=== PATIENT | male | born 1955 | race African-American/Black ===

== ENCOUNTER → 2017-01-08 | Outpatient (CLI) | payer BC, OTHER ==
[~2017-01-08] VITALS: Ht 177.8 cm; Wt 117.9 kg
[~2017-01-08] MED LIST: ALEVE220 MG PO; AMBIEN 5 MG TABL5 M1 PO; AMITRIPTYLINE H25 M2 PO; AMITRIPTYLINE H50 M2 PO; ASPIRIN81 M2 PO; CATAFLAM50 MG OR; DILAUDID 2 MG TA2 MG PO; ENDOCET 10-3251 EACH PO; ENOXAPARIN30 MG/0.3 SUBQ; ERY-TAB333 MG; ERYTHROMYCIN E3.5 G1 IO; ERYTHROMYCIN E3.5 G1 OPHTHALMIC; ERYTHROMYCIN E3.5 G3 OPHTHALMIC; HYDROCODON-ACE1 EAC5 PO; HYDROCODON-ACE1 EAC7 OR; IRON325 PO; LIDODERM 5%1 PATCH TOP; LOVENOX SQ; MEDROLDOSEPACK PO; METHADONE HCL 110 M1 PO; MOM PO; MS CONTIN15 MG PO; NEOMYC-POLYM-D3.5 GM OP; NEURONTIN 300300 M1 PO; NEXIUM40 MG PO; NORCO 10-325 T1 EACH PO; NORCO 5-325 TA1 EACH PO; NORFLEX100 MG PO; OXYCODONE HCL E15 MG PO; OXYCODONE HCL E20 MG PO; OXYCODONE-ACET1 EAC2 PO; OXYCONTIN20 M1 PO; OXYCONTIN40 MG PO; PEPCID40 MG PO; PERCOCET 10-321 EAC1 PO; PERCOCET 10-321 EACH PO; PERCOCET 5-3251 EACH PO; PLAVIX 75 MG TA75 M1 PO; ROXICODONE15 M1 PO; TOPROL XL25 MG PO; TOPROL XL50 MG PO; TRAMADOL 50 MG50 MG OR; VALIUM10 MG PO; XARELTO10 M1 PO; XARELTO10 MG PO; XTAMPZA ER18 MG PO; ZOCOR40 MG PO
--- NOTE | ~2017-01-08 | HPC ---
[facility] [address] [place] [address] PAIN MANAGEMENT CONSULTATION Name: PATY COOPER Room #: REG [facility].#: [id number] Admission: 01/08/17 Attend Phys: Leyda Leach MD Discharge: Date of : 55 Report #: [id number] THIS REPORT FOR: //name// CC: CHRIS physician/PCP Leyda Salgado MD DATE OF SERVICE: 01/08/2017 FOLLOWUP COMPLAINT: "I'm having to work long hours. I have worked 12 hours one day, 13 hours another day and the concrete is hard on my legs." FOLLOWUP HISTORY: The patient is a 61-year-old gentleman who has been followed in the pain clinic because of bilateral hip pain. As you recall, he has had his hips replaced. He continues to have some pain and discomfort. 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 He indicates that his amount of work has increased. They have gone from 8 custodians to 4 custodians. This is a peak time of the year when their services are needed. He has had to work 12 hours, 13 hours and numerous long hours. This continues to worsen the pain and discomfort that he is having on his legs. The patient's has recently come home from the hospital. She has a pulmonary condition and is limited in her ability to engage in activities of daily living because of her pulmonary situation. PHYSICAL EXAMINATION: GENERAL: The patient is alert, complains of pain and discomfort down into both legs and hips, notes increased stiffness in his legs and his hips. VITAL SIGNS: Blood pressure 159/95, pulse 74, respiratory rate 16, room air saturation 97%. Height 177 cm, weight 117 kilograms. BMI is 37. IMPRESSION: 1. Chronic bilateral hip pain status post hip replacements. 2. Hypertension. 3. Again past medical history of glaucoma at , enucleation of left eye. We would like to thank you for letting us participate in his care. We hope he continues to improve. A script for his medications have been rewritten. By: [id number] Leyda Leach MD /nt
[2017-01-08 08:17] VITALS: BP 159/95
== END ==
LOC: PAIN 12-25 07:10
DX: G89.29 Other chronic pain (principal); M25.552 Pain in left hip; M25.551 Pain in right hip; I10 Essential (primary) hypertension; F17.210 Nicotine dependence, cigarettes, uncomplicated

== ENCOUNTER → 2017-04-09 | Outpatient (CLI) | payer BC, OTHER ==
[~2017-04-09] VITALS: Ht 177.8 cm; Wt 116.1 kg
--- NOTE | ~2017-04-09 | HPC ---
[facility] [address] [place] [address] PAIN MANAGEMENT CONSULTATION Name: PATY COOPER Room #: REG [facility]#: [id number] Admission: 04/09/17 Attend Phys: Leyda Leach MD Discharge: Date of : 55 Report #: [id number] THIS REPORT FOR: //name// CC: Ting Salgado MD DATE OF SERVICE: 04/09/2017 PRIMARY PHYSICIAN: Mark Salgado MD FOLLOWUP COMPLAINT: "We have been working 12-hour days." FOLLOWUP HISTORY: The patient is a 61-year-old gentleman who has been followed in the pain clinic. As you recall, he has had bilateral hip replacements. 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 Since they are such a deficit, he has been working long hours. He notes that his pain continues to be more problematic on most days when he works really long hours. If he is able to rest, he notes some improvement in his pain. He finds that the medications that he is using continue to be helpful. There is still some stress in his life. As you recall, his has significant pulmonary problems. PHYSICAL EXAMINATION: Blood pressure 120/80, pulse 75, respiratory rate 16, room air saturation is 98%. Weight 116 kilograms. Height 177 cm. BMI is 36.7. The patient has not fallen since we saw him last. IMPRESSION: 1. Chronic bilateral hip pain, status post hip replacements. He is working long hours. Notes that the pain is exacerbated with these long hours. 2. Hypertension. 3. History of glaucoma, enucleation of left eye. RECOMMENDATIONS: We discussed treatment options with the patient. We will continue with his current medical regimen of [place] 10/325 one p.o. t.i.d. to q.i.d. to help with pain control. Percocet 10/325 one p.o. b.i.d. The patient has been given a script for lipid profile as well as CMP for electrolyte evaluation. He will call us if he has any problems with his medications. We would like to thank you for letting us participate in his care. We hope he continues to improve. By: [id number] Leyda Leach MD /nitesh
[2017-04-09 08:26] VITALS: BP 120/80
== END | disposition home or self-care (01) ==
LOC: PAIN 07:35
DX: M25.552 Pain in left hip (principal); M25.551 Pain in right hip; I10 Essential (primary) hypertension; H40.9 Unspecified glaucoma; Z87.891 Personal history of nicotine dependence

== ENCOUNTER → 2017-10-08 | Outpatient (CLI) | payer BC, OTHER ==
[~2017-10-08] VITALS: Ht 177.8 cm; Wt 119.8 kg
--- NOTE | ~2017-10-08 | HPC ---
[facility] [address] [place] [address] PAIN MANAGEMENT CONSULTATION Name: PATY COOPER Room #: REG [facility].#: [id number] Admission: 10/08/17 Attend Phys: Leyda Leach MD Discharge: Date of : 55 Report #: [id number] THIS REPORT FOR: //name// CC: LIZA Ross DATE OF SERVICE: 10/08/2017 FOLLOWUP COMPLAINT: Here for medication renewal. FOLLOWUP HISTORY: The patient is a 61-year-old gentleman who has been followed in the pain clinic because of chronic pain involving his legs. As you recall, he has had bilateral hip replacements. 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 He has a lot of responsibility. They have been quite short. He is working sometimes up to 14 hours. He feels that his medications are helpful. Does have a lot of stress at this juncture. His who has significant pulmonary problems, has been sidelined at home. He has returned today for renewal of his medications. Rates his pain as an 8/10. He states that he works constantly on concrete. Once he gets home and sits down, he notes some improvement in his pain, but continues to have pain, which is still quite problematic. He continues to keep his medications in a guarded place at home. He is aware of the shortcomings of opioid medications. He realizes that these medications can be addictive and that tolerance can develop. At this juncture, he feels that he needs to continue to work and finds that these medications provide him that pain relief, which is required. ALLERGIES: SULFA, IODINE, CODEINE, PENICILLIN, DILAUDID. MEDICATIONS: Current medication regimen reviewed. Oxycodone 10/325 one p.o. b.i.d., hydrocodone 10/325 one p.o. q.i.d., Polymyxin B ophthalmic left eye p.r.n. infection. PAIN CLINIC ASSESSMENT: 1. History of osteoarthritis, has had that in his hips and has had replacements, history of rheumatoid arthritis, not applicable. Height 5 feet 10 inches, weight 264 pounds, BMI is 37. 2. Vital Signs: Blood pressure 131/77, respiratory rate 20, room air O2 saturation is 98%, pulse 73. 3. Pain intensity 8/10. 4. Fall risk: The patient does not need help standing. He has not fallen in the last 3 months. 5. The patient is not on any blood thinner. 6. Hypertension. The patient is not on a hypertensive medication at this juncture. 7. Opioid therapy greater than 6 weeks: [place] [address] PAIN MANAGEMENT CONSULTATION Name: PATY COOPER Sil Room #: REG [facility]#: [id number] Admission: 10/08/17 Attend Phys: Leyda Leach MD Discharge: Date of : 55 Report #: [id number] contracts. 8. Risk assessment tool: Low risk at 3. 9. Functional assessment tool: 47/70 regarding general activity, mood, walking ability, normal work, relationships with others, sleep, life enjoyment. 10. Denies use of illicit drugs. Does smoke cigarettes, smokes 1 cigarette per day, has smoked for 20 years. Drinks approximately 6-7 beers per week. PHYSICAL EXAMINATION: GENERAL: He is a well-developed male, slightly obese, appears stated age. Orientation x3. Affect is appropriate. Does complain of feeling tired because he recently finished a long night of work. HEENT: Head is atraumatic. Hearing is good. Eyes: Extraocular eye muscles on the right intact. The patient has a prosthetic left eye. Nose is without sinus complaints. Buccal membranes are moist. NECK: Without adenopathy. LUNGS: Clear. HEART: Regular rate. ABDOMEN: Nontender. MUSCULOSKELETAL: Normal alignment without scoliosis, kyphosis or lordosis. The patient walks with a reasonably good gait. Complains of pain and discomfort in the left and right thighs down into his mid thigh area. Muscle strength is +5 in the upper extremities with normal sensation. The patient has some pain and discomfort in the anterior thighs, left and right, particularly after a long working days and after "standing on concrete." IMPRESSION: 1. Chronic hip pain, status post bilateral hip replacements. 2. Hypertension. 3. History of glaucoma at , requiring enucleation of left eye eventually. RECOMMENDATIONS: We discussed treatment options with the patient. We will continue with his current medical regimen. He is still stressed because of his 's pulmonary condition. 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 He continues to work long hours secondary to them being short-handed. Feels the stress of the job, but overall things are going reasonably well. He had a cholesterol panel, which showed creatinine 1.18, serum glucose 94, BUN 18. Lipid panel: Cholesterol total 223, triglycerides 111, HDL cholesterol 55, VLDL cholesterol 22, LDL cholesterol calculation 146. He will follow up in the future as needed. A script for [place] 10/325 one p.o. t.i.d., hydrocodone 10/325 one p.o. q.i.d. The patient will be given amitriptyline 25 mg to help with sleep and pain. He will increase this from 25 mg at bedtime to 50 mg at bedtime if he notes no untoward side effects. He will call us if he has any concerns. [facility] [address] [place] [address] PAIN MANAGEMENT CONSULTATION Name: PATY COOPER Room #: REG [facility].#: [id number] Admission: 10/08/17 Attend Phys: Leyda Leach MD Discharge: Date of : 55 Report #: [id number] We would like to thank you for letting us to participate in his care. We hope he continues to improve. <ELECTRONICALLY SIGNED> By: Leyda Leach MD 11/24/17 [id number] [id number] Leyda Leach MD /nt
[2017-10-08 09:14] VITALS: BP 131/77
== END ==
LOC: PAIN 06:54
DX: G89.29 Other chronic pain (principal); M25.551 Pain in right hip; M25.552 Pain in left hip; H40.9 Unspecified glaucoma; I10 Essential (primary) hypertension; Z96.643 Presence of artificial hip joint, bilateral; Z88.2 Allergy status to sulfonamides; Z91.041 Radiographic dye allergy status; Z88.5 Allergy status to narcotic agent; Z88.0 Allergy status to penicillin

== ENCOUNTER → 2017-12-24 | Outpatient (CLI) | payer BC, OTHER ==
[~2017-12-24] VITALS: Ht 177.8 cm; Wt 119.0 kg
--- NOTE | ~2017-12-24 | HPC ---
[facility] [place] [address] PAIN MANAGEMENT CONSULTATION Name: PATY COOPRE [facility] [id number] Admission: 12/24/17 Attend Phys: Leyda Leach MD Discharge: Date of : 55 Report #: [id number] THIS REPORT FOR: //name// CC: Ting Durant DATE OF SERVICE: 12/24/2017 FOLLOWUP COMPLAINT: Here for renewal of medication. I have been working about 12 hours a day and this is about my 15th day. FOLLOWUP HISTORY: The patient is a 62-year-old gentleman, who has been followed in the pain clinic because of chronic pain. As you recall, he has had some osteoarthritic changes in his hips. He has had bilateral hip replacements. He continues to work vigorously. 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 He gets called from one high school/[employer] high to the other. He has been working quite long hours at this juncture. This is the time of year when a number of programs are scheduled during the school year. He has to setup the gymnasium with chairs as well as breaks them down and put them away. He has noticed that all of this continued weight, work, and activity continues to make his hip and leg pain more problematic. Overall, he feels like his medications are still helpful. His is doing better. She is in a pulmonary rehabilitation program. Overall, she continues to improve. He would like to continue with his medications. States that the medications continue to be helpful and enable him to be and remain gainfully employed. He has taken the medication as prescribed. Denies any problem with medication. Denies any problems with his bowel or bladder function. Denies any problems with mentation. He would like to renew the medications today. ALLERGIES: SULFA, IODINE, CODEINE, PENICILLIN, AND DILAUDID. CURRENT MEDICATIONS: Amitriptyline 25 mg p.o. at bedtime, sometimes takes 2 tablets; Percocet 10/325 one p.o. q.8 hours p.r.n.; hydrocodone 10/325 one p.o. q.i.d. p.r.n. for leg pain; Neomycin/polymyxin B sulfate/dexamethasone eye ointment. PAIN CLINIC ASSESSMENT: 1. History of osteoarthritis, has had bilateral hip replacements and continues to have pain and discomfort as a result of this. 2. Height 5 feet 10 inches, weight 262 pounds, BMI 37. 3. Vital Signs: Blood pressure 134/85, pulse 107, respiratory rate 16, room air saturation 97%. 4. Pain intensity 02/20. [address] [address] PAIN MANAGEMENT CONSULTATION Name: PATY COOPER [facility] [id number] Admission: 12/24/17 Attend Phys: Leyda Leach MD Discharge: Date of : 55 Report #: [id number] 5. Fall risk. The patient on occasion notes that the pain can be quite problematic because of his long hours at work. 6. Blood thinners. The patient is not on a blood thinner. 7. History of hypertension. The patient is being treated for hypertension. 8. Opioid therapy greater than 6 weeks. The patient is on an opioid contract with the pain clinic and gets his medications from only one source. 9. Risk assessment tool 0, which is low. 10. Functional assessment tool. 11. Recreational drug use: The patient denies use of recreational drugs. 12. Tobacco: The patient is a current every day smoker, smokes 1 pack per 2 weeks. 13. Alcohol: The patient denies use of alcoholic beverages. PHYSICAL EXAMINATION: GENERAL: The patient is a well-developed male, appears slightly obese. Appears his stated age. His orientation, he is alert and oriented x 3. Affect: The patient's affect is normal. Speech is fluent. HEENT: Normocephalic. Extraocular eye muscles intact on the right side. The patient has a prosthetic left eye. Nose without sinus complaints. Mucous membranes are moist. NECK: Without adenopathy. Good range of motion. CHEST: Clear to auscultation without rales or cough. ABDOMEN: Nontender and somewhat protuberant. EXTREMITIES: Muscular structure in the upper extremities is judged to be 5/5 with normal muscles strength and normal neurologic function. Lower extremity: The patient walks with a slight antalgic gait. He rises from his chair to a standing position in about 5 seconds. Complains of some pain and discomfort in his hips because he has been working really hard and standing on them, walking on "concrete." Muscle straight is judged to be 5/5 for the upper extremities as well as 5/5 for the lower extremities. Notes some pain in his anterior thighs, left and right, particularly after prolonged standing. IMPRESSION: 1. Chronic pain, status post bilateral hip replacements with chronic pain. 2. Hypertension. 3. History of glaucoma at , requiring enucleation of his left eye. 4. with pulmonary problems/improving. RECOMMENDATIONS: We discussed treatment options with the patient. We will continue with his current medication regimen. Overall, he feels more relaxed. His 's condition is improving. She is increasing her activity with her pulmonary therapy. Overall, he still feels stressed because of his job. He is short of help. 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 We will renew his medication. He will call us if he has any problems. The patient has been given a script for Percocet, hydrocodone and [facility] [address] [place] [address] PAIN MANAGEMENT CONSULTATION Name: PATY COOPER Room #: REG [facility]#: [id number] Admission: 12/24/17 Attend Phys: Leyda Leach MD Discharge: Date of : 55 Report #: [id number] amitriptyline. We would like to thank you for letting us participate in his care. We hope he continues to improve. By: [id number] Leyda Leach MD /EASTON
[2017-12-24 09:52] VITALS: BP 134/85
== END ==
LOC: PAIN 07:04
DX: G89.29 Other chronic pain (principal); I10 Essential (primary) hypertension; H40.9 Unspecified glaucoma; Z96.643 Presence of artificial hip joint, bilateral

== ENCOUNTER → 2018-04-08 | Outpatient (CLI) | payer BC, OTHER ==
[~2018-04-08] VITALS: Ht 177.8 cm; Wt 116.7 kg
--- NOTE | ~2018-04-08 | HPC ---
[facility] [address] [place] [address] PAIN MANAGEMENT CONSULTATION Name: PATY COOPER Room #: REG [facility] Silvana.#: [id number] Admission: 04/08/18 Attend Phys: Leyda Leach MD Discharge: Date of : 55 Report #: [id number] THIS REPORT FOR: //name// CC: Ting Salgado DATE OF SERVICE: 04/08/2018 FOLLOWUP COMPLAINT: "School is about to start and I am working long hours even on Saturdays and Sundays." FOLLOWUP HISTORY: The patient is a 62-year-old gentleman who has been followed in the pain clinic because of chronic pain. As you recall, he has had bilateral hip replacements. He continues to have pain and discomfort in his thighs. He rates his pain as a 6/10 today. Notes that the pain is exacerbated with all of his activities at work. There is significant amount of walking, standing and lifting. 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 He notes that his has had some worsening of her health. He has had some swelling in his right jaw. He was having problems and was taken to the Emergency Room. He was placed on antibiotics. No obvious sign of infections were found. Overall, he seems like he is turning the corner at this juncture, he is feeling a little better. He feels his medications are helpful. Continues to note pain, which is quite problematic. He states that when he gets home from work oftentimes, walks in a forward bending motion and somewhat shuffling gait, similar to that of what his father. He now continues to work hard walking erect. Denies any problems with his mentation with use of his medications. He takes his medication as prescribed. Keeps his medications in a guarded area. ALLERGIES: SULFA, IODINE, CODEINE, PENICILLIN, AND DILAUDID. CURRENT MEDICATIONS: Amitriptyline 25 mg p.o. at bedtime, Percocet 10/325 one p.o. daily hours p.r.n., hydrocodone 10/325 one p.o. q.i.d. p.r.n. for leg pain, neomycin/polymyxin B sulfates and dexamethasone ophthalmic ointment. PAIN CLINIC ASSESSMENT: 1. History of osteoarthritis, has had bilateral hip replacements and continued to have pain and discomfort as a result of this. 2. Height 5 feet 10 inches, weight 257 pounds, BMI is 36. 3. Vital signs: Blood pressure 138/75, pulse 77, respiratory rate 20, room air saturation is 100%. 4. Pain intensity 02/20. 5. Fall risk. The patient has not fallen in the last 3 months. He did note some episodes on one to occasions where he has stood up, started to walk and stumbled, it was not hurt. He continues to move from a sitting or resting position with more emphasis on control his walking. [address] [address] PAIN MANAGEMENT CONSULTATION Name: PATY COOPER Room #: REG [facility].#: [id number] Admission: 04/08/18 Attend Phys: Leyda Leach MD Discharge: Date of : 55 Report #: [id number] 6. Blood thinner. The patient is not on a blood thinning medication. 7. Hypertension. The patient has been treated for hypertension. 8. Opioid therapy greater than 6 weeks. The patient is receiving medications from the pain clinic on a regular basis. 9. Risk assessment tool, low risk for use of opioid medications. 10. Functional assessment tool. 11. Recreational drug use. The patient denies use of recreational drugs. 12. Tobacco. The patient smokes daily 1 pack of cigarettes per day. 13. Alcohol. The patient occasionally drinks alcoholic beverages weekly depending on his activity level. PHYSICAL EXAMINATION: GENERAL: The patient is a well-developed black male, appears of his stated age. Slightly obese. He is alert and oriented x 3. Affect is appropriate. Speech is fluent. Does state that he feels a little bit tired because of his chronic 10-12 hour days working. HEENT: Normocephalic, atraumatic. Extraocular eye muscles intact. Mucous membranes are moist. Her left eye is prosthetic and right eye is nonicteric. NECK: Without adenopathy or JVD. Good range of motion. LUNGS: Clear to auscultation without rales or rhonchi. ABDOMEN: Nontender, somewhat due to protuberant. EXTREMITIES: Muscular strength in the upper extremity is judged to be 5/5 without neurological changes. Lower extremities, the patient still complains of pain and discomfort in his hips bilaterally and walks with a slightly antalgic gait. Slow to rise. Uses his hands to go from a sitting to a standing position. IMPRESSION: 1. Chronic pain, status post bilateral hip replacements treated with complex medical regimen of opioids. 2. Hypertension. 3. History of glaucoma at , requiring enucleation of his left eye. 4. with pulmonary problems -- now with swelling in her right jaw on antibiotics and improving. RECOMMENDATIONS: We discussed treatment options with the patient. We will continue with his current medication regimen. He feels that the medications continue to be helpful. They know allow him to be remain gainfully employed. He does not have any problems with his mentation. He would like to continue with his medications. The patient has been given a script for his medications of amitriptyline, Percocet, hydrocodone. He will call us if he has any problems [facility] [address] [place] [address] PAIN MANAGEMENT CONSULTATION Name: PATY COOPER Room #: REG [facility].#: [id number] Admission: 04/08/18 Attend Phys: Leyda Leach MD Discharge: Date of : 55 Report #: [id number] or concerns. We would like to thank you for letting us participate in his care. We hope he continues to improve. By: [id number] Leyda Leach MD /nt
[2018-04-08 08:40] VITALS: BP 138/75
== END ==
LOC: PAIN 06:29
DX: M79.652 Pain in left thigh (principal); G89.29 Other chronic pain; I10 Essential (primary) hypertension; Z79.891 Long term (current) use of opiate analgesic

== ENCOUNTER → 2018-07-13 | Outpatient (CLI) | payer BC, OTHER ==
[~2018-07-13] VITALS: Ht 177.8 cm; Wt 119.4 kg
--- NOTE | ~2018-07-13 | HPC ---
[facility] [address] [place] [address] PAIN MANAGEMENT CONSULTATION Name: PATY COOPER Room #: [facility] [id number] Admission: 07/13/18 Attend Phys: Lety Hdz Discharge: Date of : 55 Report #: [id number] THIS REPORT FOR: //name// CC: Lety Stern DO DATE OF SERVICE: 07/13/2018 CHIEF COMPLAINT: The patient is here today for medication refill for his chronic osteoarthritis and thigh pain. HISTORY OF PRESENT ILLNESS: This is a very pleasant 62-year-old gentleman who has been followed in the pain clinic for his chronic pain. He has had bilateral hip replacements and continues to have ongoing thigh pain, especially in his left thigh. 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 The patient tells me that he has been working long hours, has worked the last 5 weekends, so he has not been able to rest much lately and his pain score is elevated at 8/10, which is normally higher than his average. He tells me that walking and standing aggravates it with rest, repositioning and ice helpful. He tells me that he is very active, in fact one Wednesday last week, he walked 44,000 steps and tells me that he was hurting quite significantly after that day. He tells me the medications are helpful for him controlling his pain. He denies constipation or daytime somnolence. He is here for his medication refills today. ALLERGIES: CONTRAST DYE, PENICILLIN, SULFA AND CODEINE. CURRENT MEDICATIONS: Amitriptyline 50 mg at bedtime, oxycodone 10/325 twice a day, hydrocodone 10/325 three times a day and that is all, he takes occasionally a stool softener. PQRS: 1. The patient has a history of osteoarthritis in bilateral hips and lower extremities. Denies rheumatoid arthritis. Height is 5 feet 10 inches, weight 263, BMI is 37.8. 2. Vital signs: Blood pressure 148/86, pulse is 80, respirations 20, oxygen sat is 98% on room air. 3. Pain score is 8/10. 4. Denies dizziness. Has not fallen in the last 3 months and does not need help walking or standing. 5. No blood thinners. 6. He does have a history of hypertension. 7. Has opioid therapy greater than 6 weeks; therefore, on opioid signed contract on the chart. 8. Risk assessment tool is low. [address] [address] PAIN MANAGEMENT CONSULTATION Name: PATY COOPER Room #: [facility]#: [id number] Admission: 07/13/18 Attend Phys: Lety Hdz Discharge: Date of : 55 Report #: [id number] 9. His functional assessment is . 10. The patient denies recreational drug use. Does smoke 1-2 cigarettes possibly a week and occasional alcohol use. PHYSICAL EXAMINATION: GENERAL: This patient is a well-developed black male, appears his stated age, slightly obese. He is alert and oriented x 3. Speech is fluent. Does seem tired, sluggish today, states that he has been working hard. HEENT: Normocephalic, atraumatic. Extraocular muscles intact. Mucous membranes are moist. 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 NECK: Without adenopathy or JVD. Good range of motion. ABDOMEN: Nontender, protuberant. EXTREMITIES: Muscle strength in upper extremities judged to be 5/5. Lower extremity: Pain present in the left thigh, tenderness posterior, walks with a slight antalgic gait. Slow to rise, uses his hands to get from the chair from standing to sitting to the bed. IMPRESSION: 1. Chronic pain, status post bilateral hip replacement. 2. Complex medical management of opioids. 3. Hypertension. 4. History of glaucoma at , required inoculation of his left eye. We reviewed the fact that opiate medications are being used to provide analgesia adequate to support activities of daily living, not attempting to achieve a specific pain score on the 0-10 Visual Analog Scale. The current opiate medications are providing sufficient analgesia to allow the patient to participate in activities of daily living. The patient is not exhibiting any aberrant behavior suggestive of drug diversion. The patient is not having any adverse reactions to medications. The patient is not suffering from daytime somnolence or mental acuity changes. The patient is managing opiate-induced constipation with appropriate sqoa-nbt-orjaift agents and dietary considerations. The patient was counseled on concern for caution with operating a motor vehicle while using opiate medications. A physical exam was performed and the patient's functional status was evaluated. All patients with back pain were advised against the bed rest greater than 4 days and were advised to return to normal activities. Pain score assessment was noted and the treatment plan was reviewed with the patient. All current medications, both prescribed and OTC were reviewed and reconciled on the electronic medical record. Tobacco screening was accomplished and smoking cessation was advised when indicated. BMI was noted and diet/exercise modification was recommended for all patients following outside normal parameters. I reviewed with the patient today their responsibilities to [address] [address] PAIN MANAGEMENT CONSULTATION Name: PATY COOPER Room #: REG [facility] Silvana#: [id number] Admission: 07/13/18 Attend Phys: Lety Hdz Discharge: Date of : 55 Report #: [id number] prescription medications, reviewed their responsibility to utilize medications only as prescribed by the physician. They are to seek and receive pain medications only from 1 physician group ( [facility]). They are to use 1 pharmacy and keep the clinic informed if they change pharmacies. Their responsibilities include making followup visits in a timely fashion and to avoid abrupt discontinuation of medication usage. Their responsibilities further include bringing their medications (bottles from the pharmacy with residual pills) to the visit for possible confirmation of pill counts and the patient understands it is their responsibility to submit to random drug screens to ensure both that the medications prescribed are present, and that no other controlled substances are present. All prescriptions provided today were generated electronically. PLAN: 1. We discussed treatment options with this patient today. 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 I told him to be very vigilant and he keeps them on his purse at all times. At home, he keeps his medicine locked up. He tells me that they are very helpful. Just lately, he has been working quite long hours. He denies any side effects. 2. We have looked at his [place] K-TRACS, which seem appropriate and he is on time for his refills with no aberrant behavior. 3. Therefore, we are willing to refill his amitriptyline 25 mg, 2, #60 at bedtime with 2 refills; Percocet 10/325, #60 for today, 4-week and 8-week; hydrocodone 10/325 three times a day, #90 with 2 additional refills. 4. This patient is below the 90 of MME; therefore actually calculates at 60. We will give him 3 months of his medication and he will follow up at that time with an appointment with myself and then the next month follow with Dr. Kendrick Leach. 5. The patient seen in collaboration with Dr. Kendrick Leach today. <ELECTRONICALLY SIGNED> By: Lety Hdz 07/15/18 0713 [id number] Lety Hdz /nt
[2018-07-13 08:11] VITALS: BP 142/86
== END ==
LOC: PAIN 06:41
DX: I10 Essential (primary) hypertension (principal); G89.29 Other chronic pain; Z86.69 Personal history of other diseases of the nervous system and sense organs; Z79.891 Long term (current) use of opiate analgesic; Z96.643 Presence of artificial hip joint, bilateral

== ENCOUNTER → 2018-09-30 | Outpatient (CLI) | payer BC, OTHER ==
[~2018-09-30] VITALS: Ht 177.8 cm; Wt 117.2 kg
[2018-09-30 08:29] VITALS: BP 147/81
--- NOTE | 2018-09-30 08:38 | NUR ---
Pain Clinic Assessment: 1. History of Osteoarthritis: HIPS KNEES BACK History of Rheumatoid Arthritis: Not Applicable 2. Height: 5 ft. 10 in. 177.8 cm. Weight: 258.4 lb. oz. 117.210 kg. Patient's BMI: 37.1 3. Vital Signs: BP: 147/81 Pulse: 79 Resp: 18 Temp: 02 Sat: 97 ECG Mon: 4. Pain Intensity: 7 5. Fall Risk: Dizziness: N Needs help standing or walking: N Fallen in the last 3 months: Y Fall risk comments: 6. Patient on Blood Thinner: None 7. History of Hypertension: Y 8. Opioid Therapy greater than 6 weeks: Y Opiate Contract Signed: 07/16/16 9. Risk Assessment Tool Provided: LOW RISK 0/0 10. Functional Assessment Tool: 11. Recreational Drug Use: Never Drug Type: Tobacco Use: Current Every Day Smoker Tobacco Type: Amount or Packs/day: How Many Years: Alcohol Use: Yes Frequency: Quant:
== END ==
LOC: PAIN 06:54
DX: M16.0 Bilateral primary osteoarthritis of hip (principal); M17.0 Bilateral primary osteoarthritis of knee; M79.652 Pain in left thigh; M25.511 Pain in right shoulder; R20.2 Paresthesia of skin; G89.29 Other chronic pain; F17.200 Nicotine dependence, unspecified, uncomplicated; Z72.89 Other problems related to lifestyle; Z79.891 Long term (current) use of opiate analgesic

== ENCOUNTER → 2018-10-05 | Outpatient (CLI) | payer BC, OTHER | LOC: MRI 07:01 | DX: M47.22 Other spondylosis with radiculopathy, cervical region (principal); M50.13 Cervical disc disorder with radiculopathy, cervicothoracic region; M48.03 Spinal stenosis, cervicothoracic region; M25.78 Osteophyte, vertebrae; R53.1 Weakness ==

== ENCOUNTER → 2019-01-04 | Outpatient (CLI) | payer BC, OTHER ==
[~2019-01-04] VITALS: Ht 177.8 cm; Wt 116.7 kg
[2019-01-04 08:36] VITALS: BP 138/91
--- NOTE | 2019-01-04 08:45 | NUR ---
Pain Clinic Assessment: 1. History of Osteoarthritis: HIPS KNEES BACK History of Rheumatoid Arthritis: Not Applicable 2. Height: 5 ft. 10 in. 177.8 cm. Weight: 257.2 lb. oz. 116.665 kg. Patient's BMI: 36.9 3. Vital Signs: BP: 138/91 Pulse: 74 Resp: 16 Temp: 02 Sat: 98 ECG Mon: 4. Pain Intensity: 6-TODAY 5. Fall Risk: Dizziness: N Needs help standing or walking: N Fallen in the last 3 months: Y Fall risk comments: 6. Patient on Blood Thinner: None 7. History of Hypertension: Y 8. Opioid Therapy greater than 6 weeks: Y Opiate Contract Signed: 07/16/16 9. Risk Assessment Tool Provided: LOW RISK 0/0 10. Functional Assessment Tool: 11. Recreational Drug Use: Never Drug Type: Tobacco Use: Current Every Day Smoker Tobacco Type: Amount or Packs/day: How Many Years: Alcohol Use: Yes Frequency: Quant:
--- NOTE | 2019-01-05 10:14 | HPC ---
[facility] [address] [place] [address] PAIN MANAGEMENT CONSULTATION Name: PATY COOPER [facility] #: [facility] [id number] Admission: 01/04/19 ������������������ Attend Phys: Lety Hdz Discharge: ������������������ Date of : 55 Report #: [id number] THIS REPORT FOR: //name// CC: Lety Stern DATE OF SERVICE: 01/04/2019 CHIEF COMPLAINT: Left leg, knee and shoulder pain. HISTORY OF PRESENT ILLNESS: This is a very pleasant 63-year-old gentleman who returns to the pain clinic today for his chronic pain. He tells me in the past month, he has had carpal tunnel release on his right arm. He tells me that his right shoulder and arm are feeling much better, not quite 100%, but almost. He is still recovering from slight tenderness there in his wrist area and he is thankful that he had it done. He does complain of left thigh and knee area today. He says he has been walking a lot at work, yesterday walked 12 miles, on Wednesday it was 16, so his pain score today is a 6/10. His pain is worse when he is walking, standing and active. Better with the medications, resting and repositioning his leg and elevating his leg. He tells me that he does not have problems with constipation or daytime sleepiness. He would just like a refill of his medications today. ALLERGIES: SULFA, IODINE, CODEINE, PENICILLIN, DILAUDID. MEDICATIONS: Oxycodone 10/325 b.i.d., hydrocodone 10/325 q.i.d. p.r.n., amitriptyline 50 mg at bedtime. PQRS: 1. History of osteoarthritis with bilateral hip replacements. He is not being treated for rheumatoid arthritis. 2. Height is 5 feet 10 inches, weight is 257, BMI is 36. 3. Vital signs: Blood pressure 138/91, pulse is 74, respirations 16, oxygen sat is 98. 4. Pain score is 6/10. 5. Denies dizziness. Does not need help walking or standing. Has fallen in the last 3 months, but not injured himself. 6. The patient is not on any blood pressure medicines. He does have a history of hypertension. 7. Opioid therapy is greater than 6 weeks; therefore, an opioid signed contract is on the chart. 8. His risk assessment tool is low. His functional assessment is 22/70. 9. Recreational drug use. Denied. He is a current smoker and occasionally drinks alcohol. We did check the prescription monitoring system. [place] [address] PAIN MANAGEMENT CONSULTATION Name: ALLISONPATY Sil Room #: REG [facility] Brooke#: [id number] Admission: 01/04/19 ������������������ Attend Phys: Lety Hdz Discharge: ������������������ Date of : 55 Report #: [id number] appropriately for his medications in a timely fashion per the prescription monitoring system. He takes care of his medicines and safeguards them, especially when he is at work. We will check a drug screen on his next visit. PHYSICAL EXAMINATION: GENERAL: This is a well-developed, well-nourished black male who appears his stated age. He is alert and orientated, slightly obese. Affect is appropriate. Speech is fluent. HEENT: Normocephalic, atraumatic. Extraocular eye muscles are intact. He has a left eye prosthetic. NECK: Without adenopathy or JVD. MUSCULOSKELETAL: Upper extremity strength judged to be 5/5 bilaterally. Complains of slight tenderness in his right wrist where his incision is from recent surgery. He has good range of motion in both extremities. His lower extremity strength judged to be 5/5 bilaterally and symmetrical. IMPRESSION: 1. Chronic pain, status post bilateral hip replacement. 2. Hypertension. 3. Glaucoma at requiring enucleation of left eye. 4. Recent carpal tunnel surgery. 5. Management of high risk medications under terms of written opioid agreement. We reviewed the fact that opiate medications are being used to provide analgesia adequate to support activities of daily living, not attempting to achieve a specific pain score on the 0-10 Visual Analog Scale. The current opiate medications are providing sufficient analgesia to allow the patient to participate in activities of daily living. The patient is not exhibiting any aberrant behavior suggestive of drug diversion. The patient is not having any adverse reactions to medications. The patient is not suffering from daytime somnolence or mental acuity changes. The patient is managing opiate-induced constipation with appropriate thel-xgd-higayuq agents and dietary considerations. The patient was counseled on concern for caution with operating a motor vehicle while using opiate medications. A physical exam was performed and the patient's functional status was evaluated. All patients with back pain were advised against the bed rest greater than 4 days and were advised to return to normal activities. Pain score assessment was noted and the treatment plan was reviewed with the patient. All current medications, both prescribed and OTC were reviewed and reconciled on the electronic medical record. Tobacco screening was accomplished and smoking cessation was advised when indicated. BMI was noted and diet/exercise modification was recommended for all patients following outside normal parameters. I reviewed with the patient today their responsibilities to safeguard [facility] [address] [place] [address] PAIN MANAGEMENT CONSULTATION Name: PATY COOPER Room #: [facility]#: [id number] Admission: 01/04/19 ������������������ Attend Phys: Lety Hdz Discharge: ������������������ Date of : 55 Report #: [id number] prescription medications, reviewed their responsibility to utilize medications only as prescribed by the physician. They are to seek and receive pain medications only from 1 physician group ( [facility]). They are to use 1 pharmacy and keep the clinic informed if they change pharmacies. Their responsibilities include making followup visits in a timely fashion and to avoid abrupt discontinuation of medication usage. Their responsibilities further include bringing their medications (bottles from the pharmacy with residual pills) to the visit for possible confirmation of pill counts and the patient understands it is their responsibility to submit to random drug screens to ensure both that the medications prescribed are present, and that no other controlled substances are present. All prescriptions provided today were generated electronically. PLAN: 1. We discussed treatment options today. The patient finds his medications very helpful and would like them renewed. 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 2. Scripts given today for hydrocodone 10/325, quantity 120 for today, 4-week and 8-week release and oxycodone 10/325, quantity 60 for today, 4 and 8-week release. The patient's morphine milliequivalent is 70 morphine milliequivalent per day according to the CDC guidelines. 3. The patient is seen in collaboration with Dr. Kendrick Leach today. ��������������������������������������������� <ELECTRONICALLY SIGNED> ���������������������������������������� By: Lety Hdz ��������������������������������������������� 01/05/19 1014 [id number] Lety Hdz /nt
== END ==
LOC: PAIN 12-30 12:40
DX: G89.29 Other chronic pain (principal); M79.605 Pain in left leg; M25.562 Pain in left knee; M25.512 Pain in left shoulder; I10 Essential (primary) hypertension; Z88.2 Allergy status to sulfonamides; Z88.5 Allergy status to narcotic agent; Z88.8 Allergy status to other drugs, medicaments and biological substances; Z88.0 Allergy status to penicillin; Z91.041 Radiographic dye allergy status; Z79.899 Other long term (current) drug therapy; Z79.891 Long term (current) use of opiate analgesic; Z96.643 Presence of artificial hip joint, bilateral

== ENCOUNTER → 2019-04-07 | Outpatient (CLI) | payer BC, OTHER ==
[~2019-04-07] VITALS: Ht 177.8 cm; Wt 115.8 kg
[2019-04-07 08:05] VITALS: BP 157/84
--- NOTE | 2019-04-07 08:11 | NUR ---
Pain Clinic Assessment: 1. History of Osteoarthritis: HIPS KNEES BACK History of Rheumatoid Arthritis: Not Applicable 2. Height: 5 ft. 10 in. 177.8 cm. Weight: 255.4 lb. oz. 115.849 kg. Patient's BMI: 36.6 3. Vital Signs: BP: 157/84 Pulse: 85 Resp: 16 Temp: 02 Sat: 99 ECG Mon: 4. Pain Intensity: 6 5. Fall Risk: Dizziness: N Needs help standing or walking: N Fallen in the last 3 months: Y Fall risk comments: 6. Patient on Blood Thinner: None 7. History of Hypertension: Y 8. Opioid Therapy greater than 6 weeks: Y Opiate Contract Signed: 07/16/16 9. Risk Assessment Tool Provided: LOW RISK 0/0 10. Functional Assessment Tool: 11. Recreational Drug Use: Never Drug Type: Tobacco Use: Current Every Day Smoker Tobacco Type: Cigarettes Amount or Packs/day: 1 CIG/DAY How Many Years: Alcohol Use: Yes Frequency: Weekly Quant: 3
--- NOTE | 2019-04-11 07:45 | HPC ---
[facility] [address] [place] [address] PAIN MANAGEMENT CONSULTATION Name: PATY COOPER Room #: REG [facility] Brooke#: [id number] Admission: 04/07/19 ������������������ Attend Phys: Lety Hdz Discharge: ������������������ Date of : 55 Report #: [id number] THIS REPORT FOR: //name// CC: Lety Hdz Ting Jarred DATE OF SERVICE: 04/07/2019 CHIEF COMPLAINT: Left leg pain, left thigh pain and knee pain. HISTORY OF PRESENT ILLNESS: This is a very pleasant 63-year-old gentleman who returns to the pain clinic today for refill of his medications that he uses to treat his ongoing chronic pain in his left thigh and knee. He tells me his pain score is a 6/10, mostly with walking, standing activity. He is very busy at work, walking about 10 miles a day and he has been experiencing some cramping in that thigh, especially in the evening. He finds his medications helpful in controlling most of his pain. He has tried to increase his potassium intake since his cramping has started. He denies any problem with constipation or filling overmedicated. The patient does need paperwork completed for his job today with the [employer]. His annual physical screening and lab work needs to be completed. Orders were given for a CMP and lipid profile to complete this screen that he is requesting today. ALLERGIES: CONTRAST DYE, PENICILLIN, SULFA AND CODEINE. CURRENT LIST OF MEDICATIONS: Oxycodone 10/325 b.i.d., hydrocodone 10/325 four times a day p.r.n., Elavil 50 mg at bedtime. PQRS: 1. The patient has a history of osteoarthritis and bilateral hip replacements. Also, has osteoarthritis in his back and knees. He denies any rheumatoid arthritis. 2. Height is 5 feet 10 inches, weight is 255, BMI is 36. 3. VITAL SIGNS: Blood pressure 157/84, pulse is 85, respirations 16, oxygen sat is 16. 4. Pain score 6/10. 5. Fall risk: Denies dizziness, does not need help walking or standing. He has fallen in the last 3 months. 6. The patient is not on any blood thinners. He does not take medicine for hypertension. His opioid therapy is greater than 6 weeks; therefore, an opioid signed contract is on the chart. 7. Risk assessment is low. Functional assessment is 22/70. 8. Recreational drug use, he denies. He is a current smoker of one cigarette a day. Occasional [place] [address] PAIN MANAGEMENT CONSULTATION Name: PATY COOPER [id number] Admission: 04/07/19 ������������������ Attend Phys: Lety Hdz Discharge: ������������������ Date of : 55 Report #: [id number] We did check the prescription monitoring system. The patient is filling appropriately for his medications. He tells me he was out 3 days ago, which is pastime for his medication refill. PHYSICAL EXAMINATION: GENERAL: This is a well-developed, well-nourished black male who appears his stated age. He is alert and orientated, slightly obese. His affect is appropriate. Rating his pain today at 6/10. HEENT: Normocephalic, atraumatic. Extraocular eye muscles are intact. 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 NECK: Without adenopathy or JVD. MUSCULOSKELETAL: Complains of tenderness in his left thigh, increased with recent cramping at bedtime. His lower extremity strength judged to be 5/5 in all major muscle groups. He walks with a slightly antalgic gait. IMPRESSION: 1. Chronic pain, status post bilateral hip replacement. 2. Hypertension. 3. Glaucoma at , requiring enucleation of the left eye. 4. Management of high risk medications under terms of written opioid agreement. We reviewed the fact that opiate medications are being used to provide analgesia adequate to support activities of daily living, not attempting to achieve a specific pain score on the 0-10 Visual Analog Scale. The current opiate medications are providing sufficient analgesia to allow the patient to participate in activities of daily living. The patient is not exhibiting any aberrant behavior suggestive of drug diversion. The patient is not having any adverse reactions to medications. The patient is not suffering from daytime somnolence or mental acuity changes. The patient is managing opiate-induced constipation with appropriate ecnu-fwe-ygaqdrm agents and dietary considerations. The patient was counseled on concern for caution with operating a motor vehicle while using opiate medications. A physical exam was performed and the patient's functional status was evaluated. All patients with back pain were advised against the bed rest greater than 4 days and were advised to return to normal activities. Pain score assessment was noted and the treatment plan was reviewed with the patient. All current medications, both prescribed and OTC were reviewed and reconciled on the electronic medical record. Tobacco screening was accomplished and smoking cessation was advised when indicated. BMI was noted and diet/exercise modification was recommended for all patients following outside normal parameters. I reviewed with the patient today their responsibilities to safeguard prescription medications, reviewed their responsibility to utilize medications [address] [address] PAIN MANAGEMENT CONSULTATION Name: PATY COOPER Room #: REG [facility] Cox#: [id number] Admission: 04/07/19 ������������������ Attend Phys: Lety Hdz Discharge: ������������������ Date of : 55 Report #: [id number] only as prescribed by the physician. They are to seek and receive pain medications only from 1 physician group ( [facility]). They are to use 1 pharmacy and keep the clinic informed if they change pharmacies. Their responsibilities include making followup visits in a timely fashion and to avoid abrupt discontinuation of medication usage. Their responsibilities further include bringing their medications (bottles from the pharmacy with residual pills) to the visit for possible confirmation of pill counts and the patient understands it is their responsibility to submit to random drug screens to ensure both that the medications prescribed are present, and that no other controlled substances are present. All prescriptions provided today were generated electronically. PLAN: 1. We discussed treatment options with the patient today. 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 Scripts were renewed for hydrocodone 10/325, #120 and oxycodone 10/325, #60 for today, 4-week and 8-week release. This places the patient below the 90 morphine mEq according to the CDC guidelines. 2. I will write an order for CBC and lipid profile to be drawn today for his work screening form that is done yearly. The patient is fasting today for that lab work. 3. The patient will return in 3 months for medication management. The patient is seen today in collaboration with Dr. Leach who did see the patient as well. ��������������������������������������������� <ELECTRONICALLY SIGNED> ���������������������������������������� By: Lety Hdz ��������������������������������������������� 04/11/19 0745 [id number] Lety man
== END ==
LOC: PAIN 06:38
DX: M79.605 Pain in left leg (principal); M25.561 Pain in right knee; I10 Essential (primary) hypertension; H40.9 Unspecified glaucoma; G89.29 Other chronic pain; Z96.643 Presence of artificial hip joint, bilateral

== ENCOUNTER → 2019-07-07 | Outpatient (CLI) | payer BC, OTHER ==
[~2019-07-07] VITALS: Ht 177.8 cm; Wt 118.7 kg
[~2019-07-07] MED LIST changes: +AMITRIPTYLINE H25 M4 PO
[2019-07-07 08:55] VITALS: BP 130/83
--- NOTE | 2019-07-07 09:00 | NUR ---
Pain Clinic Assessment: 1. History of Osteoarthritis: HIPS KNEES BACK History of Rheumatoid Arthritis: Not Applicable 2. Height: 5 ft. 10 in. 177.8 cm. Weight: 261.6 lb. oz. 118.661 kg. Patient's BMI: 37.5 3. Vital Signs: BP: 130/83 Pulse: 77 Resp: 16 Temp: 02 Sat: 97 ECG Mon: 4. Pain Intensity: 7 5. Fall Risk: Dizziness: N Needs help standing or walking: N Fallen in the last 3 months: Y Fall risk comments: 6. Patient on Blood Thinner: None 7. History of Hypertension: Y 8. Opioid Therapy greater than 6 weeks: Y Opiate Contract Signed: 07/16/16 9. Risk Assessment Tool Provided: LOW RISK 0/0 10. Functional Assessment Tool: 11. Recreational Drug Use: Never Drug Type: Tobacco Use: Current Every Day Smoker Tobacco Type: Cigarettes Amount or Packs/day: 1 WEEK How Many Years: 15 Alcohol Use: Yes Frequency: Special Occasions Quant:
--- NOTE | 2019-07-10 08:45 | HPC ---
[facility] [address] [place] [address] PAIN MANAGEMENT CONSULTATION Name: PATY COOPER Room #: REG [facility].#: [id number] Admission: 07/07/19 Attend Phys: Lety Hdz Discharge: Date of : 55 Report #: [id number] THIS REPORT FOR: //name// CC: Lety Stern DO Kendrick Ricardo Leach DATE OF SERVICE: 07/07/2019 CHIEF COMPLAINT: Left leg pain, left thigh pain and knee pain. HISTORY OF PRESENT ILLNESS: This is a very pleasant 63-year-old gentleman who returns to the pain clinic today for refill of his medications for his ongoing pain, which he reports is a 7/10 today. It is mostly in his left thigh and knee, though he does have some occasional facial pain around his left eye from his prosthesis. He describes it as a burning nerve pain that he gets off and on. His pain is most severe with walking, standing activity, but better with his medications and repositioning. 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 Therefore at night, he does suffer some muscle cramps occasionally that causes him significant pain. Today, he would like a refill of his regular medications. ALLERGIES: CONTRAST DYE, PENICILLIN, SULFA AND CODEINE. CURRENT LIST OF MEDICATIONS: Oxycodone 10/325 b.i.d., hydrocodone 10/325 t.i.d. to q.i.d., Elavil 25-50 mg daily and neomycin ointment. PQRS: 1. He has a history of osteoarthritis in his hips, knees and back. Denies any rheumatoid arthritis. 2. Height is 5 feet 10 inches, weight is 261. BMI is 37. 3. Vital signs 130/83, pulse is 77, respirations 16, oxygen sat is 97. 4. Pain score is 7/10. 5. Denies dizziness, does not need help walking or standing, has fallen in the last 3 months. 6. The patient is not on any blood thinners, but does not take medicine for hypertension. 7. Opioid therapy is greater than 6 weeks; therefore, an opiate signed contract is on the chart. Risk assessment tool is low. Functional assessment is . 8. Recreational drug use, he denies. He is a current smoker of a pack a week and occasionally drinks alcohol. According to the prescription monitoring system, the patient is due to fill his medications today in a timely fashion. He does have a recent drug screen on the chart as well that we will repeat again at his next visit. [address] [address] PAIN MANAGEMENT CONSULTATION Name: PATY COOPER Sil Room #: REG [facility] Cox#: [id number] Admission: 07/07/19 Attend Phys: Lety Hdz Discharge: Date of : 55 Report #: [id number] PHYSICAL EXAMINATION: GENERAL: This is a well-developed, well-nourished black gentleman who appears his stated age, placing his current pain score at 7/10. He is slightly obese. His affect is appropriate. HEENT: Normocephalic, atraumatic. Extraocular eye muscles are intact. 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 Some facial burning around his left eye today. NECK: Without adenopathy or JVD. MUSCULOSKELETAL: Tenderness in his left thigh and left knee with increased cramping at bedtime. His lower extremity strength judged to be 5/5 in all major muscle groups. He does walk with an antalgic gait. We reviewed the fact that opiate medications are being used to provide analgesia adequate to support activities of daily living, not attempting to achieve a specific pain score on the 0-10 Visual Analog Scale. The current opiate medications are providing sufficient analgesia to allow the patient to participate in activities of daily living. The patient is not exhibiting any aberrant behavior suggestive of drug diversion. The patient is not having any adverse reactions to medications. The patient is not suffering from daytime somnolence or mental acuity changes. The patient is managing opiate-induced constipation with appropriate oszc-iwn-ghgcsys agents and dietary considerations. The patient was counseled on concern for caution with operating a motor vehicle while using opiate medications. A physical exam was performed and the patient's functional status was evaluated. All patients with back pain were advised against the bed rest greater than 4 days and were advised to return to normal activities. Pain score assessment was noted and the treatment plan was reviewed with the patient. All current medications, both prescribed and OTC were reviewed and reconciled on the electronic medical record. Tobacco screening was accomplished and smoking cessation was advised when indicated. BMI was noted and diet/exercise modification was recommended for all patients following outside normal parameters. I reviewed with the patient today their responsibilities to safeguard prescription medications, reviewed their responsibility to utilize medications only as prescribed by the physician. They are to seek and receive pain medications only from 1 physician group ( [facility]). They are to use 1 pharmacy and keep the clinic informed if they change pharmacies. Their responsibilities include making followup visits in a timely fashion and to avoid abrupt discontinuation of medication usage. Their responsibilities further include bringing their medications (bottles from the pharmacy with residual pills) to the visit for possible confirmation of pill counts and the patient understands it is their responsibility to submit to random drug screens to ensure both that the medications prescribed are present, and that no other controlled substances are present. All prescriptions provided today were [facility] [address] [place] [address] PAIN MANAGEMENT CONSULTATION Name: PATY COOPER Room #: REG [facility]#: [id number] Admission: 07/07/19 Attend Phys: Lety Hdz Discharge: Date of : 55 Report #: [id number] generated electronically. IMPRESSION: 1. Chronic pain, status post bilateral hip replacement. 2. 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 3. Management of high risk medications under terms of written opioid agreement. PLAN: 1. We discussed treatment options with the patient today. The patient finds his medication very beneficial in controlling most of his pain. He denies any problems with constipation or daytime sleepiness. Scripts given today for his hydrocodone 10/325 2-3 times a day, #120 for one month and 90 for 4-week and 90 for 8-week release. Percocet 10/325 #60 to take b.i.d. Scripts given for today for an 8 week. The patient takes these when he is off work at home. 2. The patient finds the Elavil very beneficial in controlling some of his nerve pain and allowing him to sleep. He does take it on as needed basis. I encouraged him to take it maybe a little more frequently and maybe that will help with some of his nerve pain that he experiences at night as well as some of his facial pain. 3. The patient is seen in collaboration with Dr. Kendrick Leach who did see the patient today. The patient will return in 3 months. According to the prescription monitoring system, his morphine mEq per day is 60. <ELECTRONICALLY SIGNED> By: Lety Hdz 07/10/19 0845 [id number] Lety Hdz /nt
== END ==
LOC: PAIN 07:00
DX: G89.29 Other chronic pain (principal); M79.605 Pain in left leg; M79.662 Pain in left lower leg; M17.0 Bilateral primary osteoarthritis of knee; I10 Essential (primary) hypertension; H40.89 Other specified glaucoma; Z79.891 Long term (current) use of opiate analgesic; Z79.899 Other long term (current) drug therapy; Z96.643 Presence of artificial hip joint, bilateral; Z88.5 Allergy status to narcotic agent; Z88.0 Allergy status to penicillin; Z88.2 Allergy status to sulfonamides; Z91.041 Radiographic dye allergy status

== ENCOUNTER → 2019-09-08 | Outpatient (CLI) | payer BC, OTHER ==
[~2019-09-08] MED LIST changes: +WORK NOTE
[2019-09-08 08:49] VITALS: BP 136/84
--- NOTE | 2019-09-08 08:55 | NUR ---
Pain Clinic Assessment: 1. History of Osteoarthritis: HIPS KNEES BACK History of Rheumatoid Arthritis: Not Applicable 2. Height: 5 ft. 10 in. 177.8 cm. Weight: lb. oz. kg. Patient's BMI: 3. Vital Signs: BP: 136/84 Pulse: 78 Resp: 16 Temp: 02 Sat: 99 ECG Mon: 4. Pain Intensity: 7 5. Fall Risk: Dizziness: N Needs help standing or walking: N Fallen in the last 3 months: Y Fall risk comments: FELL LAST WEEK/GETTING OUT OF BED FALLING FORWARD 6. Patient on Blood Thinner: None 7. History of Hypertension: Y 8. Opioid Therapy greater than 6 weeks: Y Opiate Contract Signed: 07/16/16 9. Risk Assessment Tool Provided: LOW RISK 0/0 10. Functional Assessment Tool: 11. Recreational Drug Use: Never Drug Type: Tobacco Use: Current Every Day Smoker Tobacco Type: Cigarettes Amount or Packs/day: 1 CIG A DAY How Many Years: 20 Alcohol Use: Yes Frequency: Weekly Quant: 3-4
--- NOTE | 2019-09-12 14:24 | HPC ---
[facility] [address] [place] [address] PAIN MANAGEMENT CONSULTATION Name: PATY COOPER Room #: REG [facility]on.#: [id number] Admission: 09/08/19 Attend Phys: Leyda Leach MD Discharge: Date of : 55 Report #: [id number] THIS REPORT FOR: //name// CC: Ting Leach DATE OF SERVICE: 09/08/2019 CHIEF COMPLAINT: Here for medication renewal. I have some infection in my left eye duct, it is blocked and I am having pain down in both legs. HISTORY: The patient is a 63-year-old gentleman who has been followed in the pain clinic because of chronic pain involving his lower extremities. As you may recall, he has had both hips replaced. Continues to work at a very physically demanding job. 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 He has been told this morning that there is a water break with significant amounts of water in certain areas of the building. He notes that prolonged standing "on concrete" exacerbates his pain. After sitting, he notes that he must go from a sitting to a standing position and walks very gingerly initially because of the pain and discomfort. It involves both his left and his right leg. Does have rods down into his femurs. States that there is pain from the knees up to the hip. He states that some days, he is struggling to work because of the severity of pain. He has returned today for renewal of his medication. The patient has a left eye prosthesis in place. This appears to have plugged. The internal canthus seems to be plugged. Pressure on the prosthetic area cause some expression of yellowish material. He is being treated with an antibiotic. He may have to have surgery to help expedite and remove the infectious area. ALLERGIES: CONTRAST DYE, PENICILLIN, SULFA, and CODEINE. CURRENT MEDICATIONS: Oxycodone 10 mg 1 p.o. b.i.d., hydrocodone 10/325 one p.o. t.i.d. to q.i.d., Elavil 25 mg to 50 mg daily, and neomycin ointment. PAIN CLINIC ASSESSMENT/PQRS: 1. The patient has some osteoarthritic changes in his hips, left and right, as well as his knees and in his back. He is not being treated for rheumatoid arthritis. 2. Height 5 feet 10 inches, weight 261 pounds, BMI is 37. 3. Vital signs: Blood pressure is 136/84, pulse 78, respiratory rate 16, room air saturation 99%. 4. Pain intensity 7/10. 5. Fall history: The patient fell last week. He was getting out of bed and indicated that he started to walk too early and fell forward, did not require medical attention. 6. Blood thinner. The patient is not on [place] [address] PAIN MANAGEMENT CONSULTATION Name: PATY COOPER Room #: REG [facility] Brooke#: [id number] Admission: 09/08/19 Attend Phys: Leyda Leach MD Discharge: Date of : 55 Report #: [id number] 7. Hypertension. The patient is being treated for hypertension. 8. Opioids greater than 6 weeks. The patient received medication from one source, the pain clinic. 9. Risk assessment tool, low for opioid use. 10. Functional assessment tool . 11. Recreational drug use: The patient denies. 12. Tobacco: The patient does smoke one cigarette day and has smoked for 20 years. 13. Alcohol: The patient drinks 3-4 alcoholic beverages weekly. PHYSICAL EXAMINATION: GENERAL: The patient is a well-developed, well-nourished black male. He is alert and oriented x 3. His affect is appropriate. Speech is fluent. HEENT: Normocephalic, atraumatic. Extraocular eye muscles on the right is within normal limits. The patient has a prosthetic item in his left eye. The patient states that he does have some yellow viscous/mucus type secretion from the left eye area. Hearing within normal limits. NECK: Without adenopathy or JVD. HEART: Regular. MUSCULOSKELETAL: The patient has had some chest pain and discomfort, which resolved. Lower extremity, the patient has pain and discomfort in his left and right leg. Complains of pain down the femoral areas of left and his right leg. The left leg usually was problematic now right leg is involved as well. The patient walks with a very antalgic gait. Goes from a sitting to a standing position and makes short steps for about 5 feet before he can start to walk in a more normal fashion. IMPRESSION: 1. Chronic pain, status post bilateral hip replacements. 2. Glaucoma at , requiring enucleation of his left eye ____ removal of his left eye. 3. Management of pain with high risk opioid medications. 4. very ill with severe pulmonary problems. 5. Infection of the left eye. RECOMMENDATIONS: We discussed treatment options with the patient. At this juncture, we will continue with his opioid medications. A script for his medications has been prescribed. The patient states that he continues to work at a very difficult job. They are chronically short of help. This requires him to do a lot more than he would like to. He continues to find his medications are helpful. They are not causing any concerns or problems with his thinking. He is concerned about his . She has significant pulmonary problems. She is unable to walk from the car to the building because of the severity of her COPD. He also is having some problems with his left eye. He has seen his eye doctor. There has been some yellow viscous material. States that it sometimes keeps [facility] [address] [place] [address] PAIN MANAGEMENT CONSULTATION Name: PATY COOPER Room #: REG [facility]#: [id number] Admission: 09/08/19 Attend Phys: Leyda Leach MD Discharge: Date of : 55 Report #: [id number] his left eye closed. The patient states he has been given an antibiotic. He will follow up with his eye doctor with the possibility of surgery be needed in the future. The patient has complaints of pain and discomfort in his hips. He is slated to see his orthopedic surgeon in the near future. The patient also has had some chest pain. He describes it as some twinges and some slight short discomfort, which might last for a short period of time and has last for as long as 30 minutes. We have recommended that he see Dr. Smith. He has had a mild stroke-like since occurrence in the past. He states that he would see him in the very near future in regards to his cardiac status. A script for his medications have been written. He will continue with the medications as prescribed. He finds that hydrocodone 10 mg one p.o. 4-6 hours p.r.n., is helpful. A script for his medications for the next 3 months have been provided. The patient will also continue with oxycodone 10 mg 1 p.o. b.i.d. to help control the pain. We would like to thank you for letting us participate in his care. We hope he continues to improve. <ELECTRONICALLY SIGNED> By: Leyda Leach MD 09/12/19 1424 [id number] Leyda Leach MD /nt
== END ==
LOC: PAIN 06:40
DX: G89.29 Other chronic pain (principal); Z96.641 Presence of right artificial hip joint; Z96.642 Presence of left artificial hip joint; Z79.899 Other long term (current) drug therapy

== ENCOUNTER → 2019-12-29 | Outpatient (CLI) | payer BC, OTHER ==
[~2019-12-29] VITALS: Ht 177.8 cm; Wt 125.7 kg
[2019-12-29 09:07] VITALS: BP 150/89
--- NOTE | 2019-12-29 09:21 | NUR ---
Pain Clinic Assessment: 1. History of Osteoarthritis: HIPS KNEES BACK History of Rheumatoid Arthritis: Not Applicable 2. Height: 5 ft. 10 in. 177.8 cm. Weight: 277.2 lb. oz. 125.737 kg. Patient's BMI: 39.8 3. Vital Signs: BP: 150/89 Pulse: 92 Resp: 16 Temp: 02 Sat: 98 ECG Mon: 4. Pain Intensity: 8 5. Fall Risk: Dizziness: N Needs help standing or walking: N Fallen in the last 3 months: Y Fall risk comments: FELL LAST WEEK/GETTING OUT OF BED FALLING FORWARD 6. Patient on Blood Thinner: None 7. History of Hypertension: Y 8. Opioid Therapy greater than 6 weeks: Y Opiate Contract Signed: 07/16/16 9. Risk Assessment Tool Provided: LOW RISK 0/0 10. Functional Assessment Tool: 11. Recreational Drug Use: Never Drug Type: Tobacco Use: Current Every Day Smoker Tobacco Type: Cigarettes Amount or Packs/day: 1 CIGS How Many Years: 20 Alcohol Use: Yes Frequency: Quant:
--- NOTE | 2020-01-10 08:03 | HPC ---
[facility] [address] [place] [address] PAIN MANAGEMENT CONSULTATION Name: PATY COOPER Room #: REG [facility]#: [id number] Admission: 12/29/19 Attend Phys: Leyda Leach MD Discharge: Date of : 55 Report #: [id number] THIS REPORT FOR: cc: Ting Stern MD,Ting Leach,Leyda Silva MD ~ CC: Ting Leach DATE OF SERVICE: 12/29/2019 CHIEF COMPLAINT: Still having lots of pain in my legs. HISTORY: The patient is a 64-year-old gentleman who has been followed in the pain clinic because of chronic pain. He has returned today with pain in his hips, which are bilaterally uncomfortable. Has pain in his left thigh as well as pain in the left knee. Describes as a cramping, sharp soreness. Pain is exacerbated with walking activities, lifting. 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 This activity can significantly exacerbate his discomfort because he "walks on concrete." His is ill. He is quite concerned about the COVID-19 pandemic that is going around. He has returned today for renewal of his medications. ALLERGIES: CONTRAST DYE, PENICILLIN, SULFA, CODEINE. CURRENT MEDICATIONS: Oxycodone 10 mg 1 p.o. b.i.d., hydrocodone 10/325 1 p.o. t.i.d. to q.i.d., Elavil 25 mg-50 mg daily. PAIN CLINIC ASSESSMENT AND PQRS: 1. The patient has osteoarthritic changes in his hips, left and right, as well as in his knees and his back. He is not being treated for rheumatoid arthritis. 2. Height 5 feet 10 inches, weight 277 pounds, BMI is 39.4. 3. Vital Signs: Blood pressure 150/89, pulse 92, respiratory rate 16, room air saturation 98%. 4. Pain intensity, 04/22. 5. Fall history. The patient fell last week when getting out of bed. Did not seek medical attention. 6. Blood thinner. The patient is not on a blood thinning medication. 7. Hypertension. The patient is being treated for hypertension. 8. Opioids greater than 6 weeks. The patient receives medication from the pain clinic. 9. Risk assessment tool, low for opioid use. 10. Functional assessment tool, . 11. Recreational drug use. The patient denies. 12. Tobacco: The patient smokes 1 cigarette daily, has a 99-[id number]-dcxq [place] [address] PAIN MANAGEMENT CONSULTATION Name: PATY COOPER Room #: REG [facility]#: [id number] Admission: 12/29/19 Attend Phys: Leyda Leach MD Discharge: Date of : 55 Report #: [id number] 13. Alcohol. The patient occasionally drinks alcoholic beverages. PHYSICAL EXAMINATION: GENERAL: The patient is a well-developed, well-nourished, black male. Appears his stated age. He is alert and oriented x 3. His affect is appropriate. Speech is fluent. HEENT: Normocephalic, atraumatic. Extraocular eye muscles intact. Sclerae nonicteric. Mucous membranes are moist. NECK: Without adenopathy. The patient has a prosthetic left eye. HEART: Regular rate. MUSCULOSKELETAL: Upper extremity muscle strength judged to be 5/5 for the major muscle groups in the upper extremity. The patient complains of pain and discomfort in his right as well as his left leg and pain down into his left knee. He does walk with an antalgic gait. IMPRESSION: 1. Chronic pain, status post bilateral hip replacements. 2. Glaucoma from , requiring enucleation of his left eye with prosthesis in place. 3. Management of pain with high risk of opioid medications. 4. severely ill with severe pulmonary problems. RECOMMENDATIONS: We discussed treatment options with the patient. At this juncture, we will continue with his medications. He realized that the medications can be helpful. He is quite stressed. The COVID-19 has caused significant concerns. His has a very problematic pulmonary condition. She is unable to walk up and down stairs without assistance. She is on chronic oxygen. He is concerned about her welfare. He would like to have his medications renewed. A script for his medications has been provided. He will continue with amitriptyline 25 mg 2 tablets at bedtime. He will also continue with hydrocodone 10/325 1 p.o. up to 3-4 times daily. He will continue with oxycodone 10/325 1 p.o. b.i.d. We would like to thank you for letting us participate in his care. We hope he continues to improve. <ELECTRONICALLY SIGNED> By: Leyda Leach MD 01/10/20 [id number] [id number] Leyda Leach MD /[place]
== END ==
LOC: PAIN 08:54
DX: M79.605 Pain in left leg (principal); M79.604 Pain in right leg; G89.29 Other chronic pain; H40.9 Unspecified glaucoma; F11.20 Opioid dependence, uncomplicated; Z87.891 Personal history of nicotine dependence; Z88.0 Allergy status to penicillin; Z88.5 Allergy status to narcotic agent; Z88.2 Allergy status to sulfonamides; Z88.8 Allergy status to other drugs, medicaments and biological substances; Z79.899 Other long term (current) drug therapy; Z79.1 Long term (current) use of non-steroidal anti-inflammatories (NSAID)

== ENCOUNTER → 2020-03-27 | Outpatient (CLI) | payer BC, OTHER ==
[~2020-03-27] VITALS: Ht 177.8 cm; Wt 130.8 kg
[2020-03-27 14:16] VITALS: BP 129/79
--- NOTE | 2020-03-27 14:53 | NUR ---
Pain Clinic Assessment: 1. History of Osteoarthritis: HIPS KNEES BACK History of Rheumatoid Arthritis: Not Applicable 2. Height: 5 ft. 10 in. 177.8 cm. Weight: 288.4 lb. oz. 130.818 kg. Patient's BMI: 41.4 3. Vital Signs: BP: 129/79 Pulse: 94 Resp: 22 Temp: 02 Sat: 98 ECG Mon: 4. Pain Intensity: 10 5. Fall Risk: Dizziness: N Needs help standing or walking: N Fallen in the last 3 months: N Fall risk comments: FELL LAST WEEK/GETTING OUT OF BED FALLING FORWARD 6. Patient on Blood Thinner: None 7. History of Hypertension: Y 8. Opioid Therapy greater than 6 weeks: Y Opiate Contract Signed: 07/16/16 9. Risk Assessment Tool Provided: LOW RISK 0/0 10. Functional Assessment Tool: 11. Recreational Drug Use: Never Drug Type: Tobacco Use: Current Every Day Smoker Tobacco Type: Cigarettes Amount or Packs/day: 1/4 How Many Years: 10 Alcohol Use: Yes Frequency: Weekly Quant: 1-4
--- NOTE | 2020-04-10 08:53 | HPC ---
[facility] [address] [place] [address] PAIN MANAGEMENT CONSULTATION Name: PATY COOPER [id number] Admission: 03/27/20 Attend Phys: Leyda Leach MD Discharge: Date of : 55 Report #: [id number] THIS REPORT FOR: cc: Ting Stern MD,Ting Leach,Leyda Silva MD ~ CC: Ting Leach DATE OF SERVICE: 03/27/2020 CHIEF COMPLAINT: Worsening of pain and discomfort in the legs. HISTORY: The patient is a 64-year-old gentleman who has been followed in the pain clinic. As you recall, he has had both left and right hip replaced. He has been noticing increasing pain and discomfort involving the left hip. 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 Notes that he is having difficulty with sitting, lying down and more pain with other activities of daily living. Generally, he sleeps about 3 hours at night. He feels that he is struggling to make things work. His is quite ill. He feels that he must continue with his job in order to keep his insurance and maintain his job support of his family. He is aware of the COVID-19 They have been undertaking special precautions to lessen the chance of the spread. All of these increased preparation for school had caused more stress and worsening of pain and discomfort. He has returned today with hopes of having his medications renewed. ALLERGIES: CONTRAST DYE, PENICILLIN, SULFA, CODEINE. CURRENT MEDICATIONS: Hydrocodone 10/325 1 p.o. t.i.d., Percocet 10/325 1 p.o. b.i.d., Elavil 25 mg to 50 mg daily. PAIN CLINIC ASSESSMENT AND PQRS: 1. The patient has osteoarthritic changes in both hips, left and right. Also, has some pain and discomfort in his back. He is not being treated for rheumatoid arthritis. 2. Height 5 feet 10 inch, weight 280 pounds, BMI is 41. 3. Vital Signs: Blood pressure 129/79, pulse 94, respiratory rate 22, room air saturation 98%. 4. Pain intensity, 06/22. 5. Fall history. The patient fell about a week ago when getting out of bed. 6. Blood thinner. The patient is not on a blood thinning medication. 7. Hypertension. The patient is being treated for hypertension. 8. Opioids greater than 6 weeks. The patient received medication from the pain clinic. 9. Risk assessment tool, [place] [address] PAIN MANAGEMENT CONSULTATION Name: PATY COOPER Room #: REG [facility]#: [id number] Admission: 03/27/20 Attend Phys: Leyda Leach MD Discharge: Date of : 55 Report #: [id number] 10. Functional assessment tool, . 11. Recreational drug use, the patient denies. 12. Tobacco. The patient smokes 1-1/4 pack of cigarettes per day, has smoked for the last 10 years. 13. Alcohol. The patient drinks about 1-4 alcoholic beverages per week. PHYSICAL EXAMINATION: GENERAL: The patient is a well-developed, well-nourished, black male. Appears his stated age. He is alert and oriented x 3. His affect is appropriate. Speech is fluent. HEENT: Normocephalic, atraumatic. Extraocular eye muscles intact. Sclerae nonicteric. Mucous membranes are moist. The patient is wearing a mask. The patient has a prosthetic left eye. NECK: Without adenopathy or JVD. HEART: Regular. MUSCULOSKELETAL: Upper extremity muscle strength judged to be 5/5 for the major muscle groups in the upper extremity. The patient had pain and discomfort in the lower portion of his back with pain that radiates down to his left leg and to the level of his knee. Has a very antalgic gait. Uses hands to go from a sitting to a standing position. Stands most of the time while we are talking, and in the interview because of the increased pain, sitting. IMPRESSION: 1. Chronic pain, status post bilateral hip replacements. 2. Glaucoma from , requiring enucleation of his left eye with prosthesis placement. 3. Management of chronic pain with high risk medications using opioids. 4. with severe pulmonary problems. RECOMMENDATIONS: We discussed treatment options with the patient. At this juncture, we will continue with his medications. He feels that he is struggling because of the severity of his pain. He realizes that there is a limit to the amount of opioid medications that he can receive. He is trying to extubate safely from the COVID-19 virus. He is sleeping very little. His has pulmonary problems. He has difficulty going up and down the stairs at home. He would like to continue with his medications. He hopes that the pain would start to improve. He is not sure, but at this juncture will continue with his current medications. He continues to take medications as prescribed. A script for hydrocodone 10/325 2-3 tablets daily have been provided. The patient will also continue with oxycodone 10 mg 1 p.o. b.i.d. for the more severe pain. [address] [address] PAIN MANAGEMENT CONSULTATION Name: PATY COOPER Room #: [facility].#: [id number] Admission: 03/27/20 Attend Phys: Leyda Leach MD Discharge: Date of : 55 Report #: [id number] We would like to thank you for letting us participate in his care. We hope he continues to improve. <ELECTRONICALLY SIGNED> By: Leyda Leach MD 04/10/20 0853 [id number] Leyda Leach MD /PMT
== END ==
LOC: PAIN 07:05
PROVIDERS: ATTEND Anesthesiology Pain Medicine
DX: G89.29 Other chronic pain (principal); I10 Essential (primary) hypertension; Q15.0 Congenital glaucoma; F17.210 Nicotine dependence, cigarettes, uncomplicated; Z96.643 Presence of artificial hip joint, bilateral; Z79.891 Long term (current) use of opiate analgesic

== ENCOUNTER → 2020-06-14 | Outpatient (CLI) | payer BC, OTHER ==
[2020-06-14 11:30] LABS: BASOPHILS 0.9 % (0.0-2.0); EOSINOPHILS 2.1 % (0.0-3.0); HEMATOCRIT 43.7 % (42.0-52.0); HEMOGLOBIN 14.8 gm/dL (14.0-18.0); LYMPHOCYTES 27.3 % (24.0-44.0); MCH 31.7 pg (26.0-34.0); MCV 93.2 fL (80.0-100.0); MONOCYTES 7.9 % (1.0-8.0); PLATELET COUNT 258 thou/uL (150-400); POLYS 61.8 % (36.0-66.0); RBC 4.69 mil/uL (4.50-6.00); WBC 8.2 thou/uL (4.0-11.0)
== END ==
LOC: LAB 10:44
PROVIDERS: ATTEND Orthopaedic Surgery
DX: Z47.1 Aftercare following joint replacement surgery (principal); T84.038D Mechanical loosening of other internal prosthetic joint, subsequent encounter; T84.84XD Pain due to internal orthopedic prosthetic devices, implants and grafts, subsequent encounter; Z96.642 Presence of left artificial hip joint

== ENCOUNTER → 2020-06-21 | Outpatient (CLI) | payer BC, OTHER ==
[~2020-06-21] VITALS: Ht 177.8 cm; Wt 125.1 kg
[~2020-06-21] MED LIST changes: +AMITRIPTYLINE H25 M3 PO
[2020-06-21 08:16] VITALS: BP 131/77
--- NOTE | 2020-06-21 08:23 | NUR ---
Pain Clinic Assessment: 1. History of Osteoarthritis: HIPS KNEES BACK History of Rheumatoid Arthritis: Not Applicable 2. Height: 5 ft. 10 in. 177.8 cm. Weight: 275.8 lb. oz. 125.102 kg. Patient's BMI: 39.6 3. Vital Signs: BP: 131/77 Pulse: 94 Resp: 18 Temp: 02 Sat: 97 ECG Mon: 4. Pain Intensity: 7 5. Fall Risk: Dizziness: N Needs help standing or walking: N Fallen in the last 3 months: N Fall risk comments: FELL LAST WEEK/GETTING OUT OF BED FALLING FORWARD 6. Patient on Blood Thinner: None 7. History of Hypertension: Y 8. Opioid Therapy greater than 6 weeks: Y Opiate Contract Signed: 07/16/16 9. Risk Assessment Tool Provided: LOW RISK 0/0 10. Functional Assessment Tool: 11. Recreational Drug Use: Never Drug Type: Tobacco Use: Current Some Day Smoker Tobacco Type: Cigarettes Amount or Packs/day: 1-2 CIGS How Many Years: Alcohol Use: Yes Frequency: Weekly Quant: 1-2 BEERS; DOESN'T DRINK SAME TIME SMOKES AND VICE VERSA
--- NOTE | 2020-06-24 08:23 | HPC ---
[facility] [address] [place] [address] PAIN MANAGEMENT CONSULTATION Name: PATY COOPER Room #: REG [facility].#: [id number] Admission: 06/21/20 Attend Phys: Lety Hdz Discharge: Date of : 55 Report #: [id number] CC: Lety Hdz FAM unknown N Ricardo Salgado MD DATE OF SERVICE: 06/21/2020 CHIEF COMPLAINT: Left leg, left thigh and right knee pain. HISTORY OF PRESENT ILLNESS: This is a very pleasant 64-year-old gentleman who is well known to the pain clinic. Today, he is reporting increasing pain in his right knee and left leg and has been getting worse over the past few months, he has been having more difficulty walking and he is scheduled to have a bone scan next week. He has taken a Medrol Dosepak recently and thought that was beneficial, though short-lived. He has seen Dr. Salgado and had an x-ray. Per the patient's report, his right knee is [id number]. He continues to complain of a cramping, sharp deep ache, rating his pain score at 7/10. His pain is significantly increased with walking, standing activity, which he does have to do as a longterm at his job, puts in long hours with lots of walking. He feels the medication as well as his therapeutic exercises and repositioning are beneficial. Today, he is requesting refills of his medications. He denies any daytime somnolence or constipation issues as a result of his medicines. ALLERGIES: CONTRAST DYE, PENICILLIN, SULFA AND CODEINE. CURRENT LIST OF MEDICATIONS: Oxycodone 10/325, hydrocodone 10/325 p.r.n., and amitriptyline 50 mg at bedtime. PQRS: 1. He has arthritic changes in his hips, back and knee. Denies any rheumatoid arthritis. 2. Height is 5 feet 10 inches, weight is 275, BMI is 39. 3. Vital signs 131/77, pulse is 94, respirations 18, oxygen sat is 97%. Pain score 7/10. 4. Fall risk. Denies dizziness, does not need help walking or standing, has not fallen in the last 3 months. 5. The patient is not on any blood thinners or medicine for hypertension. 6. His opioid therapy is greater than 6 weeks, his opioid signed contract is on the chart. Risk assessment is low. Functional assessment is 22/70. 7. Recreational drug use, he denies. He is a current smoker of 1-2 cigarettes a day and does drink occasional alcohol. According to the prescription monitoring system, the patient is filling appropriately in a timely fashion. His morphine milliequivalent is 60 MME. PHYSICAL EXAMINATION: GENERAL: This is a well-developed, well-nourished black gentleman who appears his stated age, placing his current pain score today at 7/10. HEENT: Normocephalic, atraumatic. Extraocular eye muscles are intact. Sclerae are nonintrinsic. He is wearing a mask and has a prosthetic left eye. NECK: Without adenopathy or JVD. MUSCULOSKELETAL: Ambulation increases his pain in his lower extremities. He has pain, discomfort in his lower portion of his back that radiates into his left leg to his knee. He has an antalgic gait, uses his hands to go from the sitting to standing position. Tenderness in his right knee with no edema noted. His upper and lower extremity strength is symmetrical at 5/5. IMPRESSION: 1. Chronic pain, status post bilateral hip replacements. 2. Glaucoma from , requiring enucleation of his left eye with prosthesis. 3. Right knee pain and osteoarthritis. 4. Management of chronic pain under high risk medications utilizing opioids. We reviewed the fact that opiate medications are being used to provide analgesia adequate to support activities of daily living, not attempting to achieve a specific pain score on the 0-10 Visual Analog Scale. The current opiate medications are providing sufficient analgesia to allow the patient to participate in activities of daily living. The patient is not exhibiting any aberrant behavior suggestive of drug diversion. The patient is not having any adverse reactions to medications. The patient is not suffering from daytime somnolence or mental acuity changes. The patient is managing opiate-induced constipation with appropriate lcdd-xef-cyukmkw agents and dietary considerations. The patient was counseled on concern for caution with operating a motor vehicle while using opiate medications. A physical exam was performed and the patient's functional status was evaluated. All patients with back pain were advised against the bed rest greater than 4 days and were advised to return to normal activities. Pain score assessment was noted and the treatment plan was reviewed with the patient. All current medications, both prescribed and OTC were reviewed and reconciled on the electronic medical record. Tobacco screening was accomplished and smoking cessation was advised when indicated. BMI was noted and diet/exercise modification was recommended for all patients following outside normal parameters. I reviewed with the patient today their responsibilities to safeguard prescription medications, reviewed their responsibility to utilize medications only as prescribed by the physician. They are to seek and receive pain medications only from 1 physician group ( [facility]). They are to use 1 pharmacy and keep the clinic informed if they change pharmacies. Their responsibilities include making followup visits in a timely fashion and to avoid abrupt discontinuation of medication usage. Their responsibilities further include bringing their medications (bottles from the pharmacy with residual pills) to the visit for possible confirmation of pill counts and the patient understands it is their responsibility to submit to random drug screens to ensure both that the medications prescribed are present, and that no other controlled substances are present. All prescriptions provided today were generated electronically. PLAN: 1. We discussed treatment options with this patient. He is scheduled to have what appears to be a bone scan next week. The patient will have the results sent to our clinic. The patient also reports he had a recent x-ray of his right knee that showed [id number]. I explained to the patient that Dr. Leach is able to perform knee injections with steroids or possibly Synvisc lubricant that may help with some of his discomfort. We do have to monitor how much steroid he gets. He has had a Medrol Dosepak recently and he is unsure if he is having his hip injected next week. If he does not have that injected with steroids, we may schedule him for an appointment for a knee injection by Dr. Leach. The patient states he will call once he finds out if he is having an injection. 2. We will continue him on his hydrocodone 10/325, enabling him 3-4 tablets a day. This is a slight increase. He had previously been on 120 pills, which we had decreased him. Due to his increasing pain, we will increase him from 90 to 110 for the next [address] Leach will also send his oxycodone 10/325 two tablets a day for more severe pain. Scripts sent electronically for 3 months as well. 3. I will send his amitriptyline. The patient takes 50 mg at bedtime, quantity 60 with 5 refills will be sent. 4. The patient will call as needed for an appointment. The patient is seen today in collaboration with Dr. Leach. <ELECTRONICALLY SIGNED> By: Lety Hdz 06/24/20 0823 [id number] Lety Hdz /nitesh
== END ==
LOC: PAIN 06:54
PROVIDERS: ATTEND Clinical Nurse Specialist Adult Health
DX: M25.561 Pain in right knee (principal); M79.652 Pain in left thigh; M17.11 Unilateral primary osteoarthritis, right knee; F11.20 Opioid dependence, uncomplicated; H40.9 Unspecified glaucoma; Z96.643 Presence of artificial hip joint, bilateral; Z88.8 Allergy status to other drugs, medicaments and biological substances; Z79.899 Other long term (current) drug therapy

== ENCOUNTER → 2020-08-13 | Outpatient (CLI) | payer BC, OTHER ==
[~2020-08-13] MED LIST changes: +NEOMYC-POLYM-D3.5 GM OPHTHALMIC
== END ==
LOC: LAB 10:56
PROVIDERS: ATTEND Orthopaedic Surgery
DX: Z01.812 Encounter for preprocedural laboratory examination (principal); Z20.828 Contact with and (suspected) exposure to other viral communicable diseases

== ENCOUNTER → 2020-08-16 | Outpatient (CLI) | payer BC, OTHER ==
[~2020-08-16] VITALS: Ht 177.8 cm; Wt 123.8 kg
[~2020-08-16] MED LIST changes: +LIPITOR 20 MG T20 M1 PO
[2020-08-16 09:13] VITALS: BP 139/99
--- NOTE | 2020-08-16 09:24 | NUR ---
Pain Clinic Assessment: 1. History of Osteoarthritis: HIPS KNEES BACK History of Rheumatoid Arthritis: Not Applicable 2. Height: 5 ft. 10 in. 177.8 cm. Weight: 273.0 lb. oz. 123.832 kg. Patient's BMI: 39.2 3. Vital Signs: BP: 139/99 Pulse: 90 Resp: 20 Temp: 02 Sat: 98 ECG Mon: 4. Pain Intensity: 6 5. Fall Risk: Dizziness: N Needs help standing or walking: N Fallen in the last 3 months: Y Fall risk comments: fell, denies injury 6. Patient on Blood Thinner: None 7. History of Hypertension: Y 8. Opioid Therapy greater than 6 weeks: Y Opiate Contract Signed: 07/16/16 9. Risk Assessment Tool Provided: LOW RISK 0/0 10. Functional Assessment Tool: 11. Recreational Drug Use: Never Drug Type: Tobacco Use: Current Every Day Smoker Tobacco Type: Cigarettes Amount or Packs/day: 2 cigs/day How Many Years: 20 Alcohol Use: Yes Frequency: Weekly Quant: 2-4 beers
== END ==
LOC: PAIN 06:48
PROVIDERS: ATTEND Anesthesiology Pain Medicine
DX: Z76.0 Encounter for issue of repeat prescription (principal); M25.551 Pain in right hip; M25.552 Pain in left hip; M54.16 Radiculopathy, lumbar region; F11.20 Opioid dependence, uncomplicated; Z88.8 Allergy status to other drugs, medicaments and biological substances; Z79.899 Other long term (current) drug therapy

== ENCOUNTER → 2020-10-25 | Outpatient (CLI) | payer BC, OTHER ==
[~2020-10-25] VITALS: Ht 175.3 cm; Wt 126.1 kg
[2020-10-25 08:46] VITALS: BP 156/93
--- NOTE | 2020-10-25 08:51 | NUR ---
Pain Clinic Assessment: 1. History of Osteoarthritis: HIPS KNEES BACK History of Rheumatoid Arthritis: Not Applicable 2. Height: 5 ft. 9 in. 175.3 cm. Weight: 278.0 lb. oz. 126.100 kg. Patient's BMI: 41.0 3. Vital Signs: BP: 156/93 Pulse: 102 Resp: 18 Temp: 02 Sat: 98 ECG Mon: 4. Pain Intensity: 6 5. Fall Risk: Dizziness: N Needs help standing or walking: N Fallen in the last 3 months: N Fall risk comments: fell, denies injury 6. Patient on Blood Thinner: None 7. History of Hypertension: Y 8. Opioid Therapy greater than 6 weeks: Y Opiate Contract Signed: 07/16/16 9. Risk Assessment Tool Provided: LOW RISK 0 10. Functional Assessment Tool: 11. Recreational Drug Use: Never Drug Type: Tobacco Use: Current Every Day Smoker Tobacco Type: Cigarettes Amount or Packs/day: 3 CIGS/DAY How Many Years: 30 Alcohol Use: Yes Frequency: Weekly Quant: 4 BEERS
== END ==
LOC: PAIN 08:16
PROVIDERS: ATTEND Anesthesiology Pain Medicine
DX: Z76.0 Encounter for issue of repeat prescription (principal); G89.29 Other chronic pain; H40.9 Unspecified glaucoma; M47.816 Spondylosis without myelopathy or radiculopathy, lumbar region; M48.061 Spinal stenosis, lumbar region without neurogenic claudication; M51.26 Other intervertebral disc displacement, lumbar region; M19.90 Unspecified osteoarthritis, unspecified site; Z96.643 Presence of artificial hip joint, bilateral; F17.200 Nicotine dependence, unspecified, uncomplicated; Z72.89 Other problems related to lifestyle; Z79.891 Long term (current) use of opiate analgesic

== ENCOUNTER → 2021-04-02 | Outpatient (CLI) | payer OTHER ==
[~2021-04-02] VITALS: Ht 177.8 cm; Wt 126.2 kg
[2021-04-02 08:26] VITALS: BP 129/82
--- NOTE | 2021-04-02 08:36 | NUR ---
Pain Clinic Assessment: 1. History of Osteoarthritis: HIPS KNEES BACK History of Rheumatoid Arthritis: Not Applicable 2. Height: 5 ft. 10 in. 177.8 cm. Weight: 278.2 lb. oz. 126.191 kg. Patient's BMI: 39.9 3. Vital Signs: BP: 129/82 Pulse: 88 Resp: 20 Temp: 02 Sat: 100 ECG Mon: 4. Pain Intensity: 7 5. Fall Risk: Dizziness: N Needs help standing or walking: N Fallen in the last 3 months: N Fall risk comments: fell, denies injury 6. Patient on Blood Thinner: None 7. History of Hypertension: Y 8. Opioid Therapy greater than 6 weeks: Y Opiate Contract Signed: 07/16/16 9. Risk Assessment Tool Provided: LOW RISK 0 10. Functional Assessment Tool: 11. Recreational Drug Use: Never Drug Type: Tobacco Use: Current Every Day Smoker Tobacco Type: Cigarettes Amount or Packs/day: 2 CIGGS/DAY How Many Years: Alcohol Use: Yes Frequency: Weekly Quant: 3-4
== END ==
LOC: PAIN 08:13
PROVIDERS: ATTEND Anesthesiology Pain Medicine
DX: G89.29 Other chronic pain (principal); M47.816 Spondylosis without myelopathy or radiculopathy, lumbar region; M51.26 Other intervertebral disc displacement, lumbar region; M48.061 Spinal stenosis, lumbar region without neurogenic claudication; M25.551 Pain in right hip; I10 Essential (primary) hypertension; H40.89 Other specified glaucoma; F10.10 Alcohol abuse, uncomplicated; F17.210 Nicotine dependence, cigarettes, uncomplicated; Z98.890 Other specified postprocedural states; Z96.643 Presence of artificial hip joint, bilateral; Z88.0 Allergy status to penicillin; Z88.5 Allergy status to narcotic agent; Z88.8 Allergy status to other drugs, medicaments and biological substances; Z79.891 Long term (current) use of opiate analgesic; Z79.899 Other long term (current) drug therapy

== ENCOUNTER → 2021-04-04 | Outpatient (CLI) | payer OTHER ==
[2021-04-04 09:08] LABS: CREATININE 1.3 mg/dL (0.7-1.3)
[2021-04-04 10:07] LABS: APTT 24.3 Seconds (24.5-32.8); INR 0.92; PROTIME 10.1 Seconds (10.5-12.1)
--- NOTE | 2021-04-04 12:00 | NUR ---
PT TOLERATED MYELOGRAM WELL. ALSO HAD CT WITH CONTRAST. PREMEDICATED PRIOR TO CT WITH SOLUMEDROL 125MG IV, PEPCID 20MG IV, AND BENADRYL 25MG IV. 20 G IV IN RT FOREARM DC'D PRIOR TO DC. HR 77, BP 139/77, SAT 98% AT DISCHARGE. PT VERBALIZES UNDERSTANDING OF DC INST. WC TO EXIT PER VOLUNTEERS. FAMILY MEMBER DRIVING PT HOME. BANDA[employer] CLE[employer] DRY INTACT
== END | disposition home or self-care (01) ==
LOC: RAD 07:44
PROVIDERS: Radiology Vascular & Interventional Radiology; ATTEND Specialist
DX: M54.16 Radiculopathy, lumbar region (principal); M43.16 Spondylolisthesis, lumbar region; Z98.890 Other specified postprocedural states; Z79.899 Other long term (current) drug therapy; Z88.0 Allergy status to penicillin; Z88.2 Allergy status to sulfonamides; Z91.041 Radiographic dye allergy status

== ENCOUNTER → 2021-05-30 | Outpatient (CLI) | payer OTHER ==
[~2021-05-30] VITALS: Ht 177.8 cm; Wt 126.6 kg
[2021-05-30 09:06] VITALS: BP 145/79
--- NOTE | 2021-05-30 09:18 | NUR ---
Pain Clinic Assessment: 1. History of Osteoarthritis: HIPS KNEES BACK History of Rheumatoid Arthritis: Not Applicable 2. Height: 5 ft. 10 in. 177.8 cm. Weight: 279.0 lb. oz. 126.554 kg. Patient's BMI: 40.0 3. Vital Signs: BP: 145/79 Pulse: 100 Resp: 16 Temp: 02 Sat: 97 ECG Mon: 4. Pain Intensity: 6 5. Fall Risk: Dizziness: N Needs help standing or walking: N Fallen in the last 3 months: Y Fall risk comments: fell, denies injury 6. Patient on Blood Thinner: None 7. History of Hypertension: Y 8. Opioid Therapy greater than 6 weeks: Y Opiate Contract Signed: 07/16/16 9. Risk Assessment Tool Provided: LOW RISK 0 10. Functional Assessment Tool: 11. Recreational Drug Use: Never Drug Type: Tobacco Use: Current Every Day Smoker Tobacco Type: Cigarettes Amount or Packs/day: 3 ciggs How Many Years: Alcohol Use: Yes Frequency: Weekly Quant: 3
== END ==
LOC: PAIN 06:59
PROVIDERS: ATTEND Anesthesiology Pain Medicine
DX: G89.29 Other chronic pain (principal); M17.11 Unilateral primary osteoarthritis, right knee; M47.816 Spondylosis without myelopathy or radiculopathy, lumbar region; M48.061 Spinal stenosis, lumbar region without neurogenic claudication; Z98.42 Cataract extraction status, left eye; Z79.899 Other long term (current) drug therapy; Z88.8 Allergy status to other drugs, medicaments and biological substances; Z88.0 Allergy status to penicillin; Z96.643 Presence of artificial hip joint, bilateral